=== PATIENT | female | born 1985 | race Caucasian/White ===

== ENCOUNTER 2020-10-14 08:54 | Day surgery (SDC) | payer OTHER ==
[~2020-10-14] VITALS: Ht 162.6 cm; Wt 77.6 kg
[2020-10-14 08:46] VITALS: BP 121/73
[2020-10-14 14:41] VITALS: BP 108/66
== END 2020-10-14 11:45 | disposition home or self-care (01) ==
LOC: DS 08:54 → GI 10:00 → OR 10:00 → DS 11:45
PROVIDERS: ATTEND Internal Medicine Gastroenterology
DX: R19.5 Other fecal abnormalities (principal); D50.9 Iron deficiency anemia, unspecified; Z86.19 Personal history of other infectious and parasitic diseases
CPT/HCPCS: 45378; J1200; J1610; J2250; J2310; J3010; J3490

== ENCOUNTER 2021-01-27 07:03 | Day surgery (SDC) | payer OTHER ==
[~2021-01-27] VITALS: Ht 162.6 cm; Wt 80.7 kg
[2021-01-27 09:03] VITALS: BP 92/52
[2021-01-27 16:45] VITALS: BP 119/69
== END 2021-01-27 16:00 ==
LOC: DS 07:03 → OR 13:00 → DS 13:00
PROVIDERS: ATTEND Internal Medicine Gastroenterology
DX: D64.9 Anemia, unspecified (principal); K29.50 Unspecified chronic gastritis without bleeding; K25.9 Gastric ulcer, unspecified as acute or chronic, without hemorrhage or perforation; B96.81 Helicobacter pylori [H. pylori] as the cause of diseases classified elsewhere
CPT/HCPCS: 43235; J1200; J1610; J2250; J2310; J3010; J3490